=== PATIENT | male | born 1970 | race Caucasian/White ===

== ENCOUNTER 2019-08-16 06:01 | Emergency (ER) | payer OTHER ==
[2019-08-16] MEDS ORDERED: Fluorescein Opthalmic Strip ONE (06:13)
[2019-08-16] MEDS ORDERED: Tetracaine 0.5% OPHTH SOLN/PF 4 ML BOT ONE (06:13)
[2019-08-16] MEDS ORDERED: Erythromycin Base 0.5% Ophth Oint 3.5 gm Tube ONE (06:40)
== END 2019-08-16 06:52 | disposition home or self-care (01) ==
LOC: MADERS 06:01
DX: T15.01XA Foreign body in cornea, right eye, initial encounter (principal); I10 Essential (primary) hypertension; E78.5 Hyperlipidemia, unspecified; F17.220 Nicotine dependence, chewing tobacco, uncomplicated
CPT/HCPCS: 65222

== ENCOUNTER 2025-04-24 11:29 | Outpatient (CLI) | payer OTHER ==
[2025-04-24 11:45] LABS: Hematocrit 43.6 % (42.0-52.0); Hemoglobin 13.8 g/dL (14.0-18.0)
[2025-04-24 16:19] LABS: Albumin (w/Testosterone Panel) 4.4 g/dL
[2025-04-24 16:46] LABS: Testosterone, Free 130.9 pg/mL (47-244)
== END 2025-04-24 11:30 | disposition home or self-care (01) ==
LOC: MADLAB 11:29
PROVIDERS: ATTEND Urology
DX: E29.1 Testicular hypofunction (principal)
CPT/HCPCS: 36415; 82670; 84270; 84403; 85014; 85018